=== PATIENT | male | born 1985 ===

== ENCOUNTER 2022-05-18 10:34 | Emergency (ER) | payer SELFPAY ==
[2022-05-18] MEDS ORDERED: NEOMY 3.5 MG/BACIT 400 UNITS/POLY B 5000 UNITS/GM OINT PACKET TP ONE (13:48)
[2022-05-18] MEDS ORDERED: SODIUM CHLORIDE 0.9% IRR 500 ML BOTTLE IR ONE (13:48)
[2022-05-18] MEDS ORDERED: TETANUS,DIPH,PERTUSS(ACELL) VACCINE 0.5 ML SYRINGE IM ONE (13:48)
[2022-05-18] MEDS ORDERED: LIDOCAINE (1%) 10 MG/1 ML VIAL 20 ML MDV INFILTRATI ONE (13:48)
[2022-05-18] MEDS ORDERED: HYDROcodone/ACETAMINOPHEN 5-325 MG TAB PO ONE (13:48)
--- NOTE | 2022-05-18 13:48 | Emergency Department Report ---
- General Chief Complaint: Laceration/Recheck/Suture Stated Complaint: LAC/HEAD Time Seen by Provider: 05/18/22 13:48 Source: EMS Mode of arrival: Ambulatory Limitations: No Limitations - History of Present Illness Initial Comments: Patient is a 37-year-old male comes to the emergency room complaining of a head laceration. He was working when a piece of glass hit him in the head. It was a large piece of glass. He has no LOC. Bleeding controlled on admission. Unknown tetanus status -: Sudden Location: scalp Place: home Patient Tetanus UTD: No Context: accidental Associated Symptoms: none - Related Data Allergies Allergy/AdvReac Type Severity Reaction Status Date / Time No Known Allergies Allergy Verified 05/18/22 10:37 ED Review of Systems ROS: Stated complaint: LAC/HEAD Other details as noted in HPI Comment: All other systems reviewed and negative ED Past Medical Hx - Past Medical History Previous Medical History?: No - Surgical History Past Surgical History?: No - Family History Family history: no significant - Social History Substance Use Type: None ED Physical Exam - General Limitations: No Limitations General appearance: alert, in no apparent distress - Head Head exam: Present: atraumatic, normocephalic - Eye Eye exam: Present: normal appearance - ENT ENT exam: Present: mucous membranes moist - Neck Neck exam: Present: normal inspection - Respiratory Respiratory exam: Present: normal lung sounds bilaterally. Absent: respiratory distress - Cardiovascular Cardiovascular Exam: Present: regular rate, normal rhythm. Absent: systolic murmur, diastolic murmur, rubs, gallop - GI/Abdominal GI/Abdominal exam: Present: soft, normal bowel sounds - Rectal Rectal exam: Present: deferred - Extremities Exam Extremities exam: Present: normal inspection - Back Exam Back exam: Present: normal inspection - Neurological Exam Neurological exam: Present: alert, oriented X3 - Psychiatric Psychiatric exam: Present: normal affect, normal mood - Skin Skin exam: Present: warm, dry, normal color. Absent: rash - Expanded Skin Exam Expanded 1 - 1 INCH VERTICAL LAC TO FOREHEAD ED Course Vital Signs 05/18/22 10:37 Temperature 97.8 F Pulse Rate 102 H Respiratory 17 Rate Blood Pressure 158/89 [Left] O2 Sat by Pulse 97 Oximetry - Laceration /Wound Repair HEAD Wound Location: head Wound Length (cm): 3 Wound's Depth, Shape: superficial Wound Explored: clean Irrigated w/ Saline (ccs): 100 Betadine Prep?: Yes Anesthesia: 1% Lidocaine Volume Anesthetic (ccs): 2 Wound Debrided: minimal Wound Repaired With: sutures Suture Size/Type: 4:0 Number of Sutures: 4 Deep Layer Suture Size/Type: 5:0 Sterile Dressing Applied?: Yes Progress: TOLERATED WELL ED Medical Decision Making - Medical Decision Making Vital Signs 05/18/22 10:37 Temperature 97.8 F Pulse Rate 102 H Respiratory 17 Rate Blood Pressure 158/89 [Left] O2 Sat by Pulse 97 Oximetry Wound repaired. Patient educated on wound care. He will return to the ER in 1 week. Patient being discharged from ER with discharge plan of care including diet, activity, medications and follow-up. She verbalizes understanding of plan of care - Differential Diagnosis SIMPLE LAC Critical care attestation.: If time is entered above; I have spent that time in minutes in the direct care of this critically ill patient, excluding procedure time. ED Disposition Clinical Impression: Laceration Disposition: 01 HOME / SELF CARE / HOMELESS Is pt being admited?: No Does the pt Need Aspirin: No Condition: Stable Additional Instructions: Your tetanus shot was updated today Motrin or Tylenol for pain Keep ice on your head today In the morning start to change her dressing. You will take the dressing off wash her head with soap and water and reapply dressing Return to the ER in 1 week for your sutures to be removed Referrals: ZARIA CARO MD [Staff Physician] - 3-5 Days Forms: Work/School Release Form(ED) Time of Disposition: 14:04
[2022-05-18 14:32] VITALS: BP 151/80
== END 2022-05-18 15:00 | disposition home or self-care (01) ==
LOC: ED 10:34
DX: S01.91XA Laceration without foreign body of unspecified part of head, initial encounter (principal); W25.XXXA Contact with sharp glass, initial encounter; Y93.89 Activity, other specified; Y92.89 Other specified places as the place of occurrence of the external cause; Y99.8 Other external cause status
CPT/HCPCS: 90471; 90715; 99283